=== PATIENT | male | born 1935 | race African-American/Black ===

== ENCOUNTER 2024-10-08 13:35 | Emergency (ER) | payer OTHER ==
[~2024-10-08] VITALS: Ht 172.7 cm; Wt 50.0 kg
[2024-10-08 13:38] VITALS: O2SAT 98
[2024-10-08] MEDS: SODIUM CHLORIDE 0.9% 1,000 ML IV ONE (14:18)
[2024-10-08 14:41] LABS: BASOPHILS % 0.5 % (0.0-2.0); HEMATOCRIT. 40.2 % (42.0-52.0); HEMOGLOBIN. 13.3 g/dL (14.0-18.0); LYMPHOCYTES % 8.2 % (20.0-50.0); MEAN CORPUSCULAR HEMOGLOBIN 29.9 pg (28.0-32.0); MEAN CORPUSCULAR VOLUME 90.5 fL (80.0-94.0); MEAN PLATELET VOLUME 8.8 fl (7.4-10.4); NEUTROPHILS % 85.3 % (40.0-76.0); PLATELET 214 x1000/uL (130-400); RED BLOOD CELL COUNT 4.45 mill/uL (4.7-6.1); RED CELL DISTRIBUTION WIDTH 16.2 % (11.6-14.6); WHITE BLOOD COUNT 8.5 x1000/uL (4.5-11.0)
[2024-10-08 14:51] LABS: POTASSIUM 4.4 mEq/L (3.5-5.1)
[2024-10-08 14:53] LABS: CALCIUM 8.9 mg/dL (8.7-10.4)
[2024-10-08 14:57] LABS: CREATININE 1.4 mg/dL (0.6-1.3)
[2024-10-08 15:20] LABS: CLARITY URINE CLEAR (CLEAR); COLOR URINE YELLOW (YELLOW); GLUCOSE URINE NEGATIVE (NEGATIVE); KETONES URINE 1+ (NEGATIVE); LEUKOCYTE ESTERASE URINE 1+ (NEGATIVE); NITRITE URINE NEGATIVE (NEGATIVE); OCCULT BLOOD URINE NEGATIVE (NEGATIVE); PROTEIN URINE TRACE (NEGATIVE); SPECIFIC GRAVITY URINE 1.017 (1.005-1.030); UROBILINOGEN URINE 0.2 E.U./dL (0.2-1.0)
[2024-10-08 15:40] LABS: BACTERIA URINE TRACE; RBC URINE NONE SEEN /hpf (0-2); SQUAMOUS EPITHELIAL CELL URINE NONE SEEN /lpf (RARE/1+)
[2024-10-08 16:28] VITALS: BP 130/73; PULSE 86; RESP 20; TEMP 37.1; O2SAT 98
== END 2024-10-08 16:58 | disposition home or self-care (01) ==
LOC: ER 13:35
DX: E11.649 Type 2 diabetes mellitus with hypoglycemia without coma (principal); I10 Essential (primary) hypertension
CPT/HCPCS: 99283; 80048; 81003; 82962; 85025; 36415; J7030